=== PATIENT | female | born 1995 | race Caucasian/White ===

== ENCOUNTER 2020-01-19 04:59 | Emergency (ER) | payer OTHER, BC ==
--- NOTE | 2020-01-19 05:23 | ED Physician Documentation ---
PD HPI FEMALE - Stated complaint Stated Complaint: FEM /BLEEDING - Chief complaint Chief Complaint: Abd Pain - History obtained from History obtained from: Patient - History of Present Illness Timing - onset: How many days ago (4) Timing - details: Abrupt onset Associated symptoms: Vaginal bleeding [employer]ENT[employer]CH[employer]IC History: Termination(s) - Additional information Additional information: patient had d+c 4 days ago in [place]. she was approximately 10 weeks . 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: Dilation and currettage - Present Medications Home Medications: Ambulatory Orders Medication Instructions Recorded Confirmed Alprazolam [Xanax] 0.5 mg DAILY 01/19/20 01/19/20 Oxycodone HCl/Acetaminophen 1 - 2 each PO Q6H PRN #14 tablet 01/19/20 [Percocet 5-325 mg Tablet] Venlafaxine [Effexor] 37.5 mg DAILY 01/19/20 01/19/20 - Allergies Allergies/Adverse Reactions: Allergies Allergy/AdvReac Type Severity Reaction Status Date / Time No Known Drug Allergies Allergy Verified 01/19/20 05:17 - Social History Does the pt smoke?: No Smoking Status: Never smoker PD ED PE NORMAL - Vitals Vital signs reviewed: Yes - General General: Alert and oriented X 3, Well developed/nourished, Other (appears uncomfortable) - Cardiac Cardiac: RRR, No murmur - Respiratory Respiratory: No respiratory distress, Clear bilaterally - Abdomen Abdomen: Soft, Non tender - Derm Derm: Normal color Results - Vitals Vitals: Oxygen O2 Source Room air - Labs Labs: Laboratory Tests 01/19/20 01/19/20 01/19/20 05:58 05:58 06:20 WBC 6.6 RBC 4.27 Hgb 13.6 Hct 39.1 MCV 91.6 MCH 31.9 H MCHC 34.8 RDW 13.5 Plt Count 161 MPV 10.9 H Neut # (Auto) 4.4 Lymph # (Auto) 1.2 L [place] # (Auto) 0.6 Eos # (Auto) 0.5 Baso # (Auto) 0.1 Absolute Nucleated RBC 0.00 Nucleated RBC % 0.0 Sodium 136 Potassium 3.7 Chloride 107 Carbon Dioxide 23 Anion Gap 6.0 BUN 13 Creatinine 0.7 Estimated GFR (MDRD) 102 Glucose 98 Calcium 8.9 Total Bilirubin 0.8 AST 17 ALT 15 Alkaline Phosphatase 52 Total Protein 7.3 Albumin 4.6 Globulin 2.7 Albumin/Globulin Ratio 1.7 Lipase 29 Urine Color YELLOW Urine Clarity CLEAR Urine pH 6.0 Ur Specific [place] <=1.005 Urine Protein NEGATIVE Urine Glucose (UA) NEGATIVE Urine Ketones NEGATIVE Urine Occult Blood LARGE H Urine Nitrite NEGATIVE Urine Bilirubin NEGATIVE Urine Urobilinogen 0.2 (NORMAL) Ur Leukocyte Esterase NEGATIVE Urine RBC TNTC H Urine WBC 0-3 Ur Squamous Epith Cells RARE Squamous Urine Bacteria None Seen Ur Microscopic Review INDICATED Urine Culture Comments NOT INDICATED - Rads (name of study) pelvic US Radiology: Prelim report reviewed, See rad report PD MEDICAL DECISION MAKING - ED course Complexity details: reviewed results, re-evaluated patient, considered differential, d/w patient ED course: on reevaluation after IV morphine 4mg x 2 doses, patient is awake, alert, and in NAD. she reports significant improvement in her pain and says she has had only small amount of vaginal bleeding while she has been in the ED. d/w Dr. Perez, including US findings; she recommends misoprostal 600 micrograms buccal. this was given to patient after she was given 5mg PO oxycodone; patient counselled regarding expectation that she will likely have increased cramping and bleeding today as a result of the misoprostal. Departure - Departure Disposition: 01 Home, Self Care Clinical Impression: Vaginal bleeding Condition: Good Instructions: ED Bleed Irregular Vaginal Follow-Up: Sandy Cary MD [Provider Admit Priv/Credential] - SANDY CARY MD, PHD [Physician No Access] - Prescriptions: Oxycodone HCl/Acetaminophen [Percocet 5-325 mg Tablet] 1 - 2 each PO Q6H PRN #14 tablet PRN Reason: pain Forms: Activity restrictions Discharge Date/Time: 01/19/20 09:50
[2020-01-19] MEDS ORDERED: MORPHINE 2 MG/ML CARPUJECT IVP STA ×2 (05:49→07:45)
[2020-01-19 06:08] LABS: BASOPHILS # (AUTO) 0.1 10^3/uL (0.0-0.1); BASOPHILS % (AUTO) 0.9 %; EOSINOPHILS # (AUTO) 0.5 10^3/uL (0.0-0.7); EOSINOPHILS % (AUTO) 7.3 %; HGB - HEMOGLOBIN 13.6 g/dL (12.0-16.0); LYMPHOCYTES # (AUTO) 1.2 10^3/uL (1.5-3.5); LYMPHOCYTES % (AUTO) 17.7 %; MEAN CORPUSCULAR HEMOGLOBIN 31.9 pg (27.0-31.0); MEAN CORPUSCULAR HGB CONC 34.8 g/dL (32.0-36.0); MEAN CORPUSCULAR VOLUME 91.6 fL (81.0-99.0); MEAN PLATELET VOLUME 10.9 fL (7.9-10.8); MONOCYTES # (AUTO) 0.6 10^3/uL (0.0-1.0); MONOCYTES % (AUTO) 8.3 %; NEUTROPHILS # (AUTO) 4.4 10^3/uL (1.5-6.6); NEUTROPHILS % (AUTO) 65.6 %; PLT - PLATELET COUNT 161 10^3/uL (130-450); RED BLOOD COUNT 4.27 10^6/uL (4.20-5.40); RED CELL DISTRIBUTION WIDTH 13.5 % (12.0-15.0); WHITE BLOOD COUNT 6.6 x10^3/uL (4.8-10.8)
[2020-01-19 06:22] LABS: ALBUMIN 4.6 g/dL (3.2-5.5); ALBUMIN/GLOBULIN RATIO 1.7 (1.0-2.2); BILIRUBIN,TOTAL 0.8 mg/dL (0.2-1.0); CALCIUM 8.9 mg/dL (8.5-10.3); CREATININE 0.7 mg/dL (0.4-1.0); TOTAL PROTEIN 7.3 g/dL (6.7-8.2)
[2020-01-19 06:26] LABS: BILIRUBIN,URINE NEGATIVE (NEGATIVE); GLUCOSE, URINE (UA) NEGATIVE (NEGATIVE); KETONES,URINE (UA) NEGATIVE (NEGATIVE); LEUKOCYTE ESTERASE, URINE NEGATIVE (NEGATIVE); NITRITE,URINE NEGATIVE (NEGATIVE); OCCULT BLOOD,URINE LARGE (NEGATIVE); PROTEIN,URINE NEGATIVE (NEGATIVE); UROBILINOGEN,URINE 0.2 (NORMAL) E.U./dL (NORMAL)
[2020-01-19 06:28] LABS: CLARITY,URINE CLEAR (CLEAR)
[2020-01-19 06:34] LABS: BACTERIA,URINE None Seen /HPF (None Seen); RBC,URINE TNTC /HPF (0-5); SQUAMOUS EPITHELIAL CELL,UR RARE Squamous (<= Few)
--- NOTE | 2020-01-19 08:20 | Ultrasound Report ---
Reason: pelvic pain, vaginal bleeding, recent D+C Procedure Date: 01/19/2020 Accession Number: [id number] / [id number] Procedure: US - Transvaginal CPT Code: Final Report FULL RESULT: EXAM: PELVIC ULTRASOUND EXAM DATE: 01/19/2020 07:16 AM. CLINICAL HISTORY: Pelvic pain, vaginal bleeding, recent D+C. COMPARISON: None. TECHNIQUE: Realtime transvaginal pelvic scan performed of the uterus and adnexa, with static image documentation. FINDINGS: Uterus: 9.7 x 6.1 x 7.5 cm, volume 232.1 cc. Anteverted position. Unremarkable overall size and echotexture. Masses: None. Endometrium: 30.7 mm. Heterogeneous echotexture without a discrete mass or vascularity visualized. Cervix: Unremarkable. Right Ovary: 4.5 x 3.3 x 2.4 cm, volume 18.6 cc. Small simple cyst measures approximately 2.5 cm. Other smaller follicles. Unremarkable echotexture and blood flow. Left Ovary: 2.4 x 2 x 2.1 cm, volume 5.3 cc. Normal echotexture and blood flow. Free Fluid: Small amount. Other: None. IMPRESSION: Heterogeneous and thickened appearance of the endometrium without a discrete mass or definite vascularity visualized. Endometrial thickness measures approximately 30.7 mm. In the setting of reported with recent D and C, this may represent a combination of hemorrhagic products, and retained products of conception cannot be excluded. [facility]
[2020-01-19] MEDS ORDERED: miSOPROStoL 200 MCG TABLET PO STA (09:31)
[2020-01-19] MEDS ORDERED: oxyCODONE 5 MG TABLET PO STA (09:31)
[2020-01-19 09:39] VITALS: BP 118/75
== END 2020-01-19 09:50 | disposition home or self-care (01) ==
LOC: ED 04:59
DX: O04.6 Delayed or excessive hemorrhage following (induced) termination of pregnancy (principal)
CPT/HCPCS: 36415; 76830; 80053; 81001; 83690; 85025; 96374; 96376; 99283; 99284; A9270; 81003; 87086